=== PATIENT | male | born 1965 | race African-American/Black ===

== ENCOUNTER 2016-10-07 20:53 | Emergency (ER) | payer OTHER ==
--- NOTE | ~2016-10-07 | EKG ---
PATIENT: ASH SUAREZ UNIT #: [id number] Ventricular Rate: 101 BPM Atrial Rate: 101 BPM P-R Interval: 162 ms QRS Duration: 90 ms Q-T Interval: 322 ms QTC Calculation(Bezet): 417 ms P Aubrey: 55 degrees Calculated R Aubrey: 78 degrees Calculated T Aubrey: 28 degrees Diagnosis Line: Sinus tachycardia Diagnosis Line: Otherwise normal ECG Diagnosis Line: When compared with ECG of 11-AUG-2010 13:49, Diagnosis Line: No significant change was found Diagnosis Line: Confirmed by SHAVONNE DAVIS MD ([id number]) on 10/08/2016 Diagnosis Line: 8:04:33 PM INTERPRETING MD: RYAN ELDRIDGE
[2016-10-07 19:24] LABS: BASOPHIL# 0.1 X10e3 (0-0.3); BASOPHIL% 1.7 % (0-2.5); EOSINOPHIL# 0.1 X10e3 (0-0.7); EOSINOPHIL% 1.1 % (0.0-7.0); HEMATOCRIT 43.1 % (38.0-50.0); HEMOGLOBIN 14.5 gm/dL (13.0-16.0); LYMPHOCYTE# 1.8 X10e3 (1.0-3.5); LYMPHOCYTE% 30.5 % (17.0-45.0); MEAN CELL VOLUME 94.2 FL (83-96); MEAN CORPUSCULAR HEMOGLOBIN 31.7 PG (28-34); MEAN CORPUSCULAR HGB CONC 33.6 g/dL (30-36); MEAN PLATELET VOLUME 9.3 FL (6.5-11.5); MONOCYTE# 0.5 X10e3 (0-1.0); MONOCYTE% 8.4 % (3.0-12.0); NEUTROPHIL# 3.4 X10e3 (1.5-7.1); NEUTROPHIL% 58.3 % (40-75); PLATELET COUNT 174 X10e3 (140-420); RED BLOOD COUNT 4.57 X10e (3.90-5.60); RED CELL DISTRIBUTION WIDTH 14.2 % (11.0-15.5); WHITE BLOOD COUNT 5.9 X10e3 (4.0-10.5)
[2016-10-07 19:27] LABS: DIFF IND NO
[2016-10-07 19:55] LABS: ALBUMIN SERUM 3.6 g/dL (3.5-5.0); ALKALINE PHOSPHATASE 68 U/L (32-92); ALT (SGPT) 41 U/L (10-40); AST (SGOT) 36 U/L (10-42); BILIRUBIN,TOTAL 0.4 mg/dL (0.2-2.0); BLOOD UREA NITROGEN 15 mg/dL (9-23); BUN/CREATININE RATIO 16.66; CALCIUM SERUM 8.9 mg/dL (8.4-10.2); CARBON DIOXIDE 24 mmol/L (22-31); CHLORIDE 104 mmol/L (100-111); CREATININE SERUM 0.9 mg/dL (0.6-1.4); GLOM FILT RATE Estimated 114.2 mL/min (>60); GLUCOSE FASTING 167 mg/dL (70-110); POTASSIUM 4.4 mmol/L (3.5-5.1); PROTEIN TOTAL SERUM 6.8 g/dL (6.0-8.3); SODIUM 137 mmol/L (135-145)
[2016-10-07 19:59] LABS: BILIRUBIN, DIRECT <0.1 mg/dL (0.0-0.2); BILIRUBIN,INDIRECT 0.3 mg/dL (0.0-0.9)
[2016-10-07 20:23] LABS: POC - CKMB <1.0 ng/mL (0.0-7.9); POC - TROPONIN <0.05 ng/mL (<=0.05)
[~2016-10-07 20:53] MED LIST: ASPIRINEC PO; HIGH B/P MED; LIPITOR PO; LISINOPRIL10 MG PO; NICOTINE T1 PATCH .2 TOP; ORUDIS75 M1 PO; TENORMIN25 MG PO; TRICOR PO; TRILIPIX135 MG PO
[2016-10-07 21:50] LABS: POC - CKMB <1.0 ng/mL (0.0-7.9); POC - TROPONIN <0.05 ng/mL (<=0.05)
== END 2016-10-07 22:43 | disposition home or self-care (01) ==
LOC: CED 20:53
PROVIDERS: Emergency Medicine
DX: I10 Essential (primary) hypertension (principal); F17.200 Nicotine dependence, unspecified, uncomplicated
CPT/HCPCS: 36415; 80048; 80076; 82553; 84484; 85025; 93005; 99283